=== PATIENT | female | born 1950 | race Caucasian/White ===

== ENCOUNTER 2018-11-03 12:57 | Emergency (ER) | payer OTHER, MEDICAID ==
[~2018-11-03] VITALS: Ht 165.1 cm; Wt 122.5 kg
[2018-11-03 14:04] LABS: Basophils # (auto) 0.1 uL; Eosinophils # (auto) 0.1 uL; Eosinophils % (auto) 1.6 % (0.0-7.0); Hematocrit 43.5 % (36.0-46.0); Hemoglobin 14.6 g/dL (12.2-16.2); Lymphocytes # (auto) 1.9 uL; Lymphocytes % (auto) 33.5 % (10.0-50.0); Mean Corpuscular Hemoglobin 31.2 pg (28.0-32.0); Mean Corpuscular Hgb Conc. 33.5 g/dL (32.0-36.0); Mean Corpuscular Volume 93.2 fL (80.0-100.0); Monocytes # (auto) 0.5 uL; Monocytes % (auto) 8.7 % (0.0-12.0); Neutrophils # (auto) 3.1 uL; Neutrophils % (auto) 55.2 % (37.0-80.0); Nucleated Red Blood Cells % 0.1 %; Platelet Count (auto) 234 10^3/uL (140-450); Red Blood Cells 4.67 10^6/uL (4.0-5.20); Red Cell Distribution Width 13.3 % (11.8-14.3); White Blood Cell 5.6 10^3/uL (4.4-10.8)
[2018-11-03 14:25] LABS: Alanine Aminotransferase 24 U/L (13-56); Albumin 3.7 g/dL (3.4-5.0); Anion Gap 5 (5-15); Aspartate Aminotransferase 19 U/L (15-37); BUN/Creatinine Ratio 22.1; Blood Urea Nitrogen 17 mg/dL (7-18); Calcium 8.8 mg/dL (8.5-10.1); Carbon Dioxide 26 mmol/L (21-32); Chloride 107 mmol/L (98-107); GFR African American 95 mL/min; GFR Non-African American 79 mL/min; Glucose 95 mg/dL (74-106); Magnesium 2.1 mg/dL (1.6-2.6); Potassium 4.1 mmol/L (3.5-5.1); Sodium 138 mmol/L (136-145)
[2018-11-03 14:30] LABS: Alkaline Phosphatase 41 U/L (45-117); Bilirubin, Total 0.3 mg/dL (0.2-1.0); Total Protein 7.4 g/dL (6.4-8.2)
[2018-11-03] MEDS ORDERED: ASPirin 81 mg TAB PO ONE (15:45)
[2018-11-03 17:13] LABS: INR < 0.93 (0.9-1.15); Partial Thromboplastin Time 23.7 sec (23.64-32.05)
[2018-11-03 18:30] VITALS: BP 123/67
== END 2018-11-03 18:45 | disposition home or self-care (01) ==
LOC: ER 13:00
DX: R07.9 Chest pain, unspecified (principal); J44.9 Chronic obstructive pulmonary disease, unspecified; E11.9 Type 2 diabetes mellitus without complications; I10 Essential (primary) hypertension; Z90.49 Acquired absence of other specified parts of digestive tract; Z88.6 Allergy status to analgesic agent; Z90.710 Acquired absence of both cervix and uterus
CPT/HCPCS: 36415; 71045; 80053; 83735; 83880; 84484; 85025; 85379; 85610; 85730; 93005; 94761

== ENCOUNTER 2022-03-07 16:08 | Emergency (ER) | payer OTHER, MEDICAID ==
[~2022-03-07] VITALS: Ht 165.1 cm; Wt 113.0 kg
[2022-03-07 16:40] VITALS: BP 125/72
[2022-03-07 17:00] LABS: Basophils # (auto) 0.2 10 ^3/uL (0-0.2); Basophils % (auto) 2.2 % (0.0-2.0); Eosinophils # (auto) 0.1 10 ^3/uL (0-0.8); Eosinophils % (auto) 0.8 % (0.0-7.0); Hematocrit 42.3 % (36.0-46.0); Hemoglobin 13.9 g/dL (12.2-16.2); Lymphocytes # (auto) 1.7 10 ^3/uL (0.4-5.4); Lymphocytes % (auto) 21.7 % (10.0-50.0); Mean Corpuscular Hgb Conc. 32.7 g/dL (32.0-36.0); Mean Corpuscular Volume 91.8 fL (80.0-100.0); Monocytes # (auto) 0.7 10 ^3/uL (0-1.3); Monocytes % (auto) 9.2 % (0.0-12.0); Neutrophils % (auto) 66.1 % (37.0-80.0); Nucleated Red Blood Cells % 0.1 %; Red Blood Cells 4.61 10^6/uL (4.0-5.20); Red Cell Distribution Width 13.6 % (11.8-14.3); White Blood Cell 7.6 10^3/uL (4.4-10.8)
[2022-03-07 17:06] LABS: Albumin 3.8 g/dL (3.4-5.0); Calcium 8.8 mg/dL (8.5-10.1); Potassium 4.6 mmol/L (3.5-5.1)
[2022-03-07 17:09] LABS: BUN/Creatinine Ratio 22.7; Bilirubin, Total 0.3 mg/dL (0.2-1.0); Total Protein 6.6 g/dL (6.4-8.2)
[2022-03-07 17:15] LABS: INR 0.99 (0.9-1.15); Partial Thromboplastin Time 23.6 sec (24.6-33.4)
== END 2022-03-07 20:28 | disposition left against medical advice (07) ==
LOC: ER 16:08
DX: R07.89 Other chest pain (principal); R55 Syncope and collapse; I20.9 Angina pectoris, unspecified; R00.2 Palpitations; J44.9 Chronic obstructive pulmonary disease, unspecified; E11.9 Type 2 diabetes mellitus without complications; I10 Essential (primary) hypertension; Z90.49 Acquired absence of other specified parts of digestive tract; Z90.710 Acquired absence of both cervix and uterus; Z88.6 Allergy status to analgesic agent
CPT/HCPCS: 36415; 71045; 80053; 84439; 84443; 84484; 85025; 85610; 85730; 93005

== ENCOUNTER 2022-03-18 22:51 | Emergency (ER) | payer OTHER, MEDICAID ==
[~2022-03-18] VITALS: Ht 160 cm; Wt 111.3 kg
[2022-03-18] MEDS ORDERED: LORATADINE 10 MG TAB PO ONE (23:15)
[2022-03-18] MEDS ORDERED: methylPREDNISolone SOD SUCC 125 MG/2 ML VL IM ONE (23:15)
[2022-03-19 00:14] VITALS: BP 155/90
[2022-03-19] MEDS ORDERED: PRED10TA PO (00:30)
[2022-03-19] MEDS ORDERED: LORA10CA7 PO (00:30)
== END 2022-03-19 01:09 | disposition home or self-care (01) ==
LOC: ER 22:53
DX: T78.40XA Allergy, unspecified, initial encounter (principal); I10 Essential (primary) hypertension; E11.9 Type 2 diabetes mellitus without complications; E03.9 Hypothyroidism, unspecified; J44.9 Chronic obstructive pulmonary disease, unspecified; Z90.49 Acquired absence of other specified parts of digestive tract; Z90.710 Acquired absence of both cervix and uterus; Z88.5 Allergy status to narcotic agent; Y92.89 Other specified places as the place of occurrence of the external cause
CPT/HCPCS: 96372; 99283; J2930; 93005

== ENCOUNTER 2022-03-23 14:34 | Emergency (ER) | payer OTHER, MEDICAID ==
[~2022-03-23] VITALS: Ht 165.1 cm; Wt 125.0 kg
[~2022-03-23 14:34] MED LIST: LORA10CA7 PO; PRED10TA PO
[2022-03-23 15:09] VITALS: BP 128/76
[2022-03-23] MEDS ORDERED: SODIUM CHLORIDE 0.9% 1,000 ML IV ONE (15:15)
[2022-03-23] MEDS ORDERED: ASPirin 81 mg TAB PO ONE (15:15)
[2022-03-23 15:42] LABS: Basophils # (auto) 0 10 ^3/uL (0-0.2); Basophils % (auto) 0.6 % (0.0-2.0); Eosinophils # (auto) 0.1 10 ^3/uL (0-0.8); Eosinophils % (auto) 2.4 % (0.0-7.0); Hematocrit 45.3 % (36.0-46.0); Hemoglobin 14.8 g/dL (12.2-16.2); Lymphocytes # (auto) 1.1 10 ^3/uL (0.4-5.4); Lymphocytes % (auto) 21.9 % (10.0-50.0); Mean Corpuscular Hemoglobin 30.2 pg (28.0-32.0); Mean Corpuscular Hgb Conc. 32.8 g/dL (32.0-36.0); Monocytes # (auto) 0.4 10 ^3/uL (0-1.3); Monocytes % (auto) 8.6 % (0.0-12.0); Neutrophils # (auto) 3.4 10 ^3/uL (1.6-8.6); Neutrophils % (auto) 66.5 % (37.0-80.0); Nucleated Red Blood Cells % 0.1 %; Red Blood Cells 4.92 10^6/uL (4.0-5.20)
[2022-03-23 15:58] LABS: INR 1.02 (0.9-1.15); Partial Thromboplastin Time 22.5 sec (24.6-33.4)
[2022-03-23 15:59] LABS: Albumin 3.8 g/dL (3.4-5.0); Calcium 9.2 mg/dL (8.5-10.1); Potassium 4.3 mmol/L (3.5-5.1)
[2022-03-23 16:03] LABS: BUN/Creatinine Ratio 27.3; Bilirubin, Total 0.5 mg/dL (0.2-1.0); Total Protein 6.8 g/dL (6.4-8.2)
[2022-03-23] MEDS ORDERED: IOHEXOL 350 MG/ML 100ML IJ ONE (17:48)
[2022-03-23] MEDS ORDERED: diphenhdrAMINE HCL 50 MG/1 ML VL IV ONE (18:15)
[2022-03-23] MEDS ORDERED: DexAMETHasone SOD PHOS 10MG/1ML VIAL INJ IV ONE (18:15)
[2022-03-23] MEDS ORDERED: LORazepam 2MG/ML-1ML VIAL IV ONE (20:30)
== END 2022-03-23 22:57 | disposition home or self-care (01) ==
LOC: ER 14:37
DX: R06.00 Dyspnea, unspecified (principal); L50.9 Urticaria, unspecified; R79.1 Abnormal coagulation profile
CPT/HCPCS: 36415; 71045; 80053; 83735; 83880; 84443; 84484; 85025; 85379; 85610; 85730; 93005; 99285; Q9967

== ENCOUNTER 2022-08-06 22:35 | Inpatient (IN) | payer OTHER, MEDICAID ==
[~2022-08-06] VITALS: Ht 165.1 cm; Wt 110.0 kg
[2022-08-06 22:59] VITALS: BP 132/51
[2022-08-07] MEDS ORDERED: SODIUM CHLORIDE 0.9% 1,000 ML IV SCH (00:45)
[2022-08-07] MEDS ORDERED: NITROGLYCERIN 0.4 MG SL TAB SL PRN (00:45)
[2022-08-07] MEDS ORDERED: PROP60CA34 PO (02:07)
[2022-08-07] MEDS ORDERED: FURO1TAB33 GT (02:07)
[2022-08-07] MEDS ORDERED: FENO134C PO (02:07)
[2022-08-07] MEDS ORDERED: IBUP800T27 PO (02:07)
[2022-08-07] MEDS ORDERED: TIOT17SP IN (02:07)
[2022-08-07] MEDS ORDERED: GABA100C9 PO (02:07)
[2022-08-07] MEDS ORDERED: SIMV-8 PO ×2 (02:07→17:14)
[2022-08-07] MEDS ORDERED: BUDE1AER4 IN (02:07)
[2022-08-07] MEDS ORDERED: LORA-622 PO (02:07)
[2022-08-07] MEDS ORDERED: ALBUAER3 IN (02:07)
[2022-08-07] MEDS ORDERED: LEV100T GT (02:07)
[2022-08-07] MEDS ORDERED: ESTR2TAB2 PO (02:07)
[2022-08-07] MEDS ORDERED: METF-370 PO (02:07)
[2022-08-07] MEDS ORDERED: DONE1TAB88 PO (02:07)
[2022-08-07] MEDS ORDERED: AML5T GT (02:07)
[2022-08-07 05:11] VITALS: BP 142/69
[2022-08-07] MEDS ORDERED: DEXTROSE (50%) 50ML SYRG IV PRN (07:00)
[2022-08-07 09:00] VITALS: BP 164/80
[2022-08-07] MEDS ORDERED: PANTOPRAZOLE 40 MG/10 ML VIAL INJ IV SCH (10:00)
[2022-08-07] MEDS ORDERED: OPTISON 3ml Vial for INJ IV ONE (10:00)
[2022-08-07] MEDS ORDERED: InsuLIN REG 1unit/0.01ml Soln (100units/ml) SC SCH (12:00)
[2022-08-07] MEDS ORDERED: ACCU-CHEK COMFORT CURVE STRIP VI SCH (12:00)
[2022-08-07 12:06] LABS: Basophils # (auto) 0 10 ^3/uL (0-0.2); Basophils % (auto) 0.6 % (0.0-2.0); Eosinophils # (auto) 0 10 ^3/uL (0-0.8); Eosinophils % (auto) 0.4 % (0.0-7.0); Hemoglobin 12.8 g/dL (12.2-16.2); Lymphocytes # (auto) 1.4 10 ^3/uL (0.4-5.4); Lymphocytes % (auto) 19.1 % (10.0-50.0); Mean Corpuscular Hemoglobin 30.3 pg (28.0-32.0); Mean Corpuscular Hgb Conc. 32.8 g/dL (32.0-36.0); Mean Corpuscular Volume 92.2 fL (80.0-100.0); Monocytes # (auto) 0.6 10 ^3/uL (0-1.3); Neutrophils # (auto) 5.5 10 ^3/uL (1.6-8.6); Neutrophils % (auto) 71.9 % (37.0-80.0); Red Blood Cells 4.23 10^6/uL (4.0-5.20); Red Cell Distribution Width 13.5 % (11.8-14.3); White Blood Cell 7.6 10^3/uL (4.4-10.8)
[2022-08-07 12:20] LABS: Albumin 3.4 g/dL (3.4-5.0); BUN/Creatinine Ratio 26.4 (10.0-20.0); Calcium 8.6 mg/dL (8.5-10.1); Potassium 3.7 mmol/L (3.5-5.1)
[2022-08-07 12:25] LABS: Bilirubin, Total 0.4 mg/dL (0.2-1.0)
[2022-08-07 13:00] VITALS: BP 141/87
[2022-08-07] MEDS ORDERED: HALOPERIDOL LACTATE 5 MG/ML INJ VIAL IM ONE (15:00)
[2022-08-07 16:52] VITALS: BP 174/78
[2022-08-07] MEDS ORDERED: ASPI81TA10 PO (17:14)
== END 2022-08-07 18:15 | disposition home or self-care (01) | DRG 641 ==
LOC: TELE-WESTW 22:37
PROVIDERS: ADMIT Internal Medicine; ATTEND Hospitalist
DX: E86.0 Dehydration (principal); Z68.41 Body mass index [BMI] 40.0-44.9, adult; F03.90 Unspecified dementia, unspecified severity, without behavioral disturbance, psychotic disturbance, mood disturbance, and anxiety; J44.9 Chronic obstructive pulmonary disease, unspecified; I11.0 Hypertensive heart disease with heart failure; I50.9 Heart failure, unspecified; E66.01 Morbid (severe) obesity due to excess calories; E11.65 Type 2 diabetes mellitus with hyperglycemia; R77.8 Other specified abnormalities of plasma proteins; E78.5 Hyperlipidemia, unspecified; E07.9 Disorder of thyroid, unspecified; M13.88 Other specified arthritis, other site; Z90.710 Acquired absence of both cervix and uterus; Z88.5 Allergy status to narcotic agent; Z79.899 Other long term (current) drug therapy; Z90.49 Acquired absence of other specified parts of digestive tract; R56.9 Unspecified convulsions
CPT/HCPCS: 36415; 80053; 80061; 82962; 83036; 83735; 83880; 84443; 84484; 85025; 93306; 93886; 97163; C9113; G0378; Q9956

== ENCOUNTER 2023-01-07 07:02 | Day surgery (SDC) | payer MEDICAID, OTHER ==
[~2023-01-07] VITALS: Ht 165.1 cm; Wt 108.9 kg
[2023-01-07] VITALS (8 sets, daily range): BP systolic 104–144; BP diastolic 45–72; PULSE 53–56; RESP 15–19; TEMP 97.2; O2SAT 92–95
[~2023-01-07 07:02] MED LIST changes: +ACET-1304 PO; +ALBUAER3 IN; +ASPI-498 OR; +DONE1TAB88 PO; +ESTR1TAB6 PO; +FENO134C19 PO; +FURO1TAB33 GT; +GABA-1308 PO; +LEV100T GT; +LORA-622 PO; -LORA10CA7 PO; +METF-370 PO; +MULT-688 PO; +MULT-927 PO; +OMEG-20 PO; -PRED10TA PO; +PROP60CA34 PO; +SIMV20TA20 PO
[2023-01-07] MEDS ORDERED: IODIXANOL 320MG/ML 100ML BTL IV ONE (08:12)
[2023-01-07] MEDS ORDERED: LIDOCAINE 2%HCL (LOCAL ANESTH.) INJ 20ML MDV ONE (08:12)
[2023-01-07] MEDS ORDERED: ANGIOMAX 250 MG VIAL IV ONE (08:27)
[2023-01-07] MEDS ORDERED: VERAPAMIL 2.5MG/ML INJ 2ML VIAL IV ONE (08:28)
[2023-01-07] MEDS ORDERED: HEPARIN SODIUM (PORCINE) 5000 UNITS/ML 1ML VIAL ONE (08:28)
[2023-01-07] MEDS ORDERED: MIDAZOLAM HCL 2MG/2ML 2ml VIAL (1mg/ml) ONE (08:28)
[2023-01-07] MEDS ORDERED: fentaNYL CITRATE 100 MCG/2 ML VL ONE (08:28)
[2023-01-07] MEDS ORDERED: SODIUM CHL 0.9% 0 ML ONE (08:29)
[2023-01-07] MEDS ORDERED: SODIUM CHL 0.9% 50 ML ONE (08:29)
[2023-01-07] MEDS ORDERED: SODIUM CHLORIDE 0.9% 1,000 ML IV ONE (09:30)
== END 2023-01-07 11:10 | disposition home or self-care (01) ==
LOC: CATH 07:02
PROVIDERS: ATTEND Internal Medicine Cardiovascular Disease
DX: R94.39 Abnormal result of other cardiovascular function study (principal); I25.10 Atherosclerotic heart disease of native coronary artery without angina pectoris; I10 Essential (primary) hypertension; E78.5 Hyperlipidemia, unspecified; J44.9 Chronic obstructive pulmonary disease, unspecified; E66.01 Morbid (severe) obesity due to excess calories; E11.9 Type 2 diabetes mellitus without complications; Z79.899 Other long term (current) drug therapy; Z79.84 Long term (current) use of oral hypoglycemic drugs; Z98.890 Other specified postprocedural states
CPT/HCPCS: 93458; C1725; C1769; C1894; J1644; J2250; J3010; J7030; Q9967; 99152